=== PATIENT | female | born 1980 | race African-American/Black ===

== ENCOUNTER 2021-03-16 03:21 | Emergency (ER) | payer MEDICAID, SELFPAY ==
--- NOTE | ~2021-03-16 | CT_ITS ---
EXAMINATION: CT CHEST WITH CONTRAST CLINICAL INFORMATION: Chest pain and shortness of breath COMPARISON: None TECHNIQUE: Multidetector volumetric CT imaging of the chest was obtained after the administration of 65 mL of Omnipaque 350 intravenous contrast without immediate adverse reactions. Axial MIP volume rendering provided. Sagittal and coronal reformatted images were obtained. This CT examination was performed using dose optimization techniques as appropriate, variously including the following: *Automated exposure control *Adjustment of mA and/or kV according to patient size (this includes techniques or standardized protocols for targeted exams where dose is matched to indication/reason for exam; i.e. extremities or head) *Use of iterative reconstruction technique DLP: 312 mGy-cm FINDINGS: LUNGS: The lungs are clear with no evidence of inflammation or nodules. MEDIASTINUM: Normal heart size. No pericardial effusion. No mediastinal or hilar adenopathy. PLEURA: There is no pleural effusion. No pleural mass or thickening. AXILLA: No lymphadenopathy. UPPER ABDOMEN: Unremarkable OSSEOUS STRUCTURES: Unremarkable. CT/CT chest w con IMPRESSION: No etiology for the patient's symptomatology is identified.
--- NOTE | ~2021-03-16 | XR_ITS ---
EXAMINATION: XR CHEST CLINICAL INFORMATION: Chest pain and shortness of breath COMPARISON: None TECHNIQUE: Frontal view of the chest was obtained. FINDINGS: No significant abnormality is noted involving the heart, lungs, mediastinum, bony thorax or soft tissues. XR/XR chest 1V IMPRESSION: Unremarkable examination.
--- NOTE | 2021-03-16 03:29 | ECG_ITS ---
Test Reason : CHEST PAIN Blood Pressure : / mmHG Vent. Rate : 113 BPM Atrial Rate : 113 BPM P-R Int : 104 ms QRS Dur : 082 ms QT Int : 332 ms P-R-T Axes : 037 044 037 degrees QTc Int : 455 ms Sinus tachycardia with short MS Nonspecific ST and T wave abnormality Abnormal ECG No previous ECGs available Referred By: Jennifer Modi Electronically Signed By:SIMA HIGH
[2021-03-16 03:35] VITALS: BP 137/92; PULSE 143; RESP 22; TEMP 37; O2SAT 100; BMI 27.3
[2021-03-16 03:53] VITALS: BP 136/90; PULSE 108; RESP 20; O2SAT 100
[2021-03-16 03:57] VITALS: BP 136/77
[2021-03-16 03:58] VITALS: BP 138/90
[2021-03-16 03:58] LABS: Hematocrit 28.9 % (37-47); Hemoglobin 8.8 g/dl (12.0-16.0); Mean Corpuscular HGB Conc 30.4 g/dl (31.0-35.0); Mean Corpuscular Hemoglobin 22.1 pg (27.0-33.0); Mean Corpuscular Volume 72.4 fL (80-98); Mean Platelet Volume 9.7 fL (9.4-12.3); Platelet Count 341 X10*3/uL (160-400); Red Blood Count 3.99 X10*6/uL (4.20-5.50); Red Cell Distribution Width 18.8 % (11.0-16.0)
[2021-03-16 04:00] LABS: WBC ABN SCTR FOR CBC 1
--- NOTE | 2021-03-16 04:03 | ED_ITS ---
HPI - Chest Pain General Chief Complaint: Chest Pain Stated Complaint: CP W/ASA AND NITRO Time Seen by Provider: 03/16/21 03:29 Source: patient Mode of arrival: EMS History of Present Illness HPI narrative: 40-year-old female with sudden onset of 7/10 chest pain that is sharp in nature associated with palpitations and describes the pain as midsternal and radiating through to her back. Pain significantly increases when she lies flat and is not associated with deep respiration. Patient took 324 mg of aspirin on her own and EMS administered 0.4 nitro without any pain relief. Patient denies any associated fever, chills, GI or symptoms and states that she has no significant past medical history. Related Data Allergies Allergy/AdvReac Type Severity Reaction Status Date / Time No Known Allergies Allergy Unverified 03/16/21 03:29 Review of Systems Review of Systems: Pertinent positives and negatives as stated in HPI 10 point review of systems is otherwise negative. [facility] Past Medical History Source: nursing notes reviewed Social History Social History Advance Directives: No Physical Exam Vital Signs: Vital Signs: Last Vital Signs Temp 98.6 F 03/16/21 03:35 Pulse 88 03/16/21 04:20 Resp 14 03/16/21 04:20 BP 124/79 03/16/21 04:20 Pulse Ox 100 03/16/21 04:20 Body Mass Index 27.3 VITAL SIGNS: Reviewed. GENERAL: Well developed, well nourished, anxious. HEAD: Normocephalic/atraumatic EYES: PERRLA, EOMI EARS: Ext canals without abnormality, TMs non-bulging and non-erythematous NOSE: Nares patent bilateral OROPHARYNX: no oral lesions noted, posterior pharynx clear and non-erythematous without noted tonsillar enlargement/erythema/exudates NECK: Supple, no adenopathy LUNGS: Normal breath sounds. No adventitious sounds or accessory muscle use. SpO2<100> CARDIOVASCULAR: Regular rate and rhythm without noted murmurs ABDOMEN: Soft, non-tender, non-distended with bowel sounds. MUSCULOSKELETAL: No tenderness, deformities, or effusions noted on gross inspection. EXTREMITIES: No cyanosis, clubbing or edema. SKIN: Inspection of the skin reveals no rashes NEUROLOGIC: Alert and oriented x 4. Course Course Course Narrative: This is a 40-year-old female with history and clinical presentation suggestive of possible pericarditis, low clinical suspicion for dissection, and on review of EKG no evidence to suggest acute STEMI. In addition, history not consistent with PE. Patient received IV Toradol with complete resolution of her pain. On review of all investigations there are no acute findings to better explain patient's presentation. On re-evaluation after providing her with Toradol patient has had complete resolution of her pain. High sensitivity troponin is undetectable and there are no acute EKG findings. MDM - Chest Pain Lab Data Result diagrams: 03/16/21 03:47 03/16/21 03:48 Labs: Lab Results 03/16/21 03/16/21 03/16/21 Range/Units 03:47 03:47 03:47 WBC 6.4 (4.8-10.8) X10*3/uL RBC 3.99 L (4.20-5.50) X10*6/uL Hgb 8.8 L (12.0-16.0) g/dl Hct 28.9 L (37-47) % MCV 72.4 L (80-98) fL MCH 22.1 L (27.0-33.0) pg MCHC 30.4 L (31.0-35.0) g/dl RDW 18.8 H (11.0-16.0) % Plt Count 341 (160-400) X10*3/uL MPV 9.7 (9.4-12.3) fL Immature Gran % (Auto) Cancelled Neut % (Auto) Cancelled Lymph % (Auto) Cancelled Garfield % (Auto) Cancelled Eos % (Auto) Cancelled Baso % (Auto) Cancelled Lymph # (Auto) Cancelled Garfield # (Auto) Cancelled Eos # (Auto) Cancelled Baso # (Auto) Cancelled Abs Immat Gran (auto) Cancelled Absolute Neuts (auto) Cancelled Absolute Nucleated RBC 0.000 (0.0-0.012) X10*3/uL Nucleated RBC % (auto) 0.0 (0.0-0.2) /100WBC Neutrophils % (Manual) 42 L (45-73) % Band Neutrophils % 0 L (3-5) % Lymphocytes % (Manual) 49 H (20-40) % Monocytes % (Manual) 4 (2-11) % Eosinophils % (Manual) 5 H (0-4) % Abs Neuts (Manual) 2.7 (2.2-7.9) X10*3/uL Lymphocytes # (Manual) 3.1 (0.6-4.8) X10*3/uL Monocytes # (Manual) 0.3 (0.0-1.2) X10*3/uL Eosinophils # (Manual) 0.3 (0.0-0.8) X10*3/UL Platelet Estimate NORMAL (NORMAL) Large Platelets PRESENT Plt Morphology Comment NORMAL RBC Morphology NOTED Polychromasia 1+ (0-2) /OIF Microcytosis 1+ (5-14) /OIF Target Cells 1+ (5-14) /OIF Tear Drop Cells 1+ (0-2) /OIF Ovalocytes 1+ (5-14) /OIF Acanthocytes (Spur) 1+ (0-2) /OIF PT 12.1 (9.9-13.0) SEC INR 1.1 (0.9-1.1) Sodium (135-145) mmol/L Potassium (3.3-5.1) mmol/L Chloride (96-108) mmol/L Carbon Dioxide (22-29) mmol/L Anion Gap (12-20) BUN (9-16) mg/dL Creatinine (0.5-1.4) mg/dL Estim Creat Clear Calc Estimated GFR Random Glucose (60-115) mg/dL Calcium (8.4-10.2) mg/dL Total Bilirubin (0.0-1.0) mg/dL AST (5-31) U/L ALT (0-31) U/L Alkaline Phosphatase (39-117) U/L Troponin I High Sens < 3.5 (<3.5-17.0) ng/L C-Reactive Protein (< or = 0.50) mg/dL Total Protein (6.5-8.0) g/dL Albumin (3.5-5.0) g/dL Lipase (8-78) U/L Beta HCG, Quant mIU/mL COVID-19 (ML) (Negative) COVID-19 Clin Com 03/16/21 03/16/21 Range/Units 03:47 03:48 WBC (4.8-10.8) X10*3/uL RBC (4.20-5.50) X10*6/uL Hgb (12.0-16.0) g/dl Hct (37-47) % MCV (80-98) fL MCH (27.0-33.0) pg MCHC (31.0-35.0) g/dl RDW (11.0-16.0) % Plt Count (160-400) X10*3/uL MPV (9.4-12.3) fL Immature Gran % (Auto) Neut % (Auto) Lymph % (Auto) Garfield % (Auto) Eos % (Auto) Baso % (Auto) Lymph # (Auto) Garfield # (Auto) Eos # (Auto) Baso # (Auto) Abs Immat Gran (auto) Absolute Neuts (auto) Absolute Nucleated RBC (0.0-0.012) X10*3/uL Nucleated RBC % (auto) (0.0-0.2) /100WBC Neutrophils % (Manual) (45-73) % Band Neutrophils % (3-5) % Lymphocytes % (Manual) (20-40) % Monocytes % (Manual) (2-11) % Eosinophils % (Manual) (0-4) % Abs Neuts (Manual) (2.2-7.9) X10*3/uL Lymphocytes # (Manual) (0.6-4.8) X10*3/uL Monocytes # (Manual) (0.0-1.2) X10*3/uL Eosinophils # (Manual) (0.0-0.8) X10*3/UL Platelet Estimate (NORMAL) Large Platelets Plt Morphology Comment RBC Morphology Polychromasia /OIF Microcytosis /OIF Target Cells /OIF Tear Drop Cells /OIF Ovalocytes /OIF Acanthocytes (Spur) /OIF PT (9.9-13.0) SEC INR (0.9-1.1) Sodium 138 (135-145) mmol/L Potassium 3.4 (3.3-5.1) mmol/L Chloride 106 (96-108) mmol/L Carbon Dioxide 22 (22-29) mmol/L Anion Gap 13 (12-20) BUN 10 (9-16) mg/dL Creatinine 1.08 (0.5-1.4) mg/dL Estim Creat Clear Calc 68.5 Estimated GFR 56 Random Glucose 183 H (60-115) mg/dL Calcium 9.8 (8.4-10.2) mg/dL Total Bilirubin 0.4 (0.0-1.0) mg/dL AST 13 (5-31) U/L ALT 10 (0-31) U/L Alkaline Phosphatase 63 (39-117) U/L Troponin I High Sens (<3.5-17.0) ng/L C-Reactive Protein 0.05 (< or = 0.50) mg/dL Total Protein 7.4 (6.5-8.0) g/dL Albumin 4.5 (3.5-5.0) g/dL Lipase 42 (8-78) U/L Beta HCG, Quant < 2 mIU/mL COVID-19 (ML) Negative (Negative) COVID-19 Clin Com See Note ECG Data ECG #1: Attestation: I personally reviewed and interpreted this ECG as follows: Prior ECG tracings: not available for review Interpretation: Normal sinus rhythm, HR-86, no STEMI, OH/QRS/QTC are within normal limits. Discharge Plan Discharge Clinical Impression: Atypical chest pain Patient Disposition: Home, Self-Care Instructions: Chest Pain (ED) Additional Instructions: Follow-up with your primary care provider on Wednesday morning to discuss these symptoms that you have been having. Return to the ER for acute worsening of your symptoms. Referrals: Physician,Nonstaff [Primary Care Provider] - 2 days
[2021-03-16 04:04] LABS: INTERNATIONAL NORM RATIO 1.1 (0.9-1.1); Prothrombin Time 12.1 SEC (9.9-13.0)
[2021-03-16 04:10] LABS: COVID-19 Test Negative (Negative); IDNOW Serial# 9DD0AD1C
[2021-03-16 04:11] LABS: Alanine Aminotransferase 10 U/L (0-31); Albumin Level 4.5 g/dL (3.5-5.0); Alkaline Phosphatase 63 U/L (39-117); Anion Gap 13 (12-20); Aspartate Amino Transferase 13 U/L (5-31); Bilirubin Total 0.4 mg/dL (0.0-1.0); Blood Urea Nitrogen 10 mg/dL (9-16); C Reactive Protein 0.05 mg/dL (< or = 0.50); Calcium 9.8 mg/dL (8.4-10.2); Carbon Dioxide 22 mmol/L (22-29); Chloride 106 mmol/L (96-108); Creatinine Clr Calc Pharmacy 68.5; Estimated Glomerular Filt Rate 56; Glucose Random 183 mg/dL (60-115); Potassium 3.4 mmol/L (3.3-5.1); Sodium 138 mmol/L (135-145); Total Protein 7.4 g/dL (6.5-8.0)
[2021-03-16 04:14] LABS: Troponin-I High Sensitivity < 3.5 ng/L (<3.5-17.0)
[2021-03-16 04:18] LABS: Lipase 42 U/L (8-78)
[2021-03-16 04:20] VITALS: BP 124/79; PULSE 88; RESP 14; O2SAT 100
[2021-03-16] MEDS: Ketorolac Tromethamine 15 MG/ML VIAL IVPUSH (04:21)
[2021-03-16 04:33] LABS: Acanthocytes 1+ (0-2) /OIF; Band Neutrophils Percent 0 % (3-5); Eosinophils Percent Manual 5 % (0-4); Large Platelet PRESENT; Lymphocytes Percent Manual 49 % (20-40); Microcytosis 1+ (5-14) /OIF; Monocytes Percent Manual 4 % (2-11); Neutrophils Percent Manual 42 % (45-73); Ovalocytes 1+ (5-14) /OIF; Platelet Estimate NORMAL (NORMAL); Platelet Morphology Comment NORMAL; Polychromasia 1+ (0-2) /OIF; RBC Morphology NOTED; Target Cells 1+ (5-14) /OIF; Tear Drop Cells 1+ (0-2) /OIF
[2021-03-16 04:36] LABS: Eosinophils Absolute Manual 0.3 X10*3/UL (0.0-0.8); Lymphocytes Absolute Manual 3.1 X10*3/uL (0.6-4.8); Monocytes Absolute Manual 0.3 X10*3/uL (0.0-1.2); Neutrophils Absolute Manual 2.7 X10*3/uL (2.2-7.9); White Blood Count 6.4 X10*3/uL (4.8-10.8)
--- NOTE | 2021-03-16 04:51 | PC.NURSE ---
PT REPORTS IMPROVEMENT IN CHEST DISCOMFORT. PT'S HR IMPROVED TO 88 BPM. PT LESS ANXIOUS AND ABLE TO POSITION IN BED SEMI FOWLERS.
[2021-03-16 05:11] LABS: HCG Quantitative < 2 mIU/mL
[2021-03-16] MEDS: iohexoL 350 MG/ML 100 ML INFUS..BTL 65 ML IV (05:23)
[2021-03-16 07:04] VITALS: PULSE 71; RESP 16; O2SAT 99
--- NOTE | 2021-03-16 07:04 | PC.NURSE ---
pt fell asleep following toradol. pt now reports pain almost gone, now 2/.
--- NOTE | 2021-03-17 07:56 | ECG_ITS ---
Test Reason : CP Blood Pressure : / mmHG Vent. Rate : 086 BPM Atrial Rate : 086 BPM P-R Int : 158 ms QRS Dur : 074 ms QT Int : 382 ms P-R-T Axes : 063 046 044 degrees QTc Int : 457 ms Normal sinus rhythm with sinus arrhythmia Nonspecific ST abnormality Abnormal ECG When compared with ECG of 16-MAR-2021 04:29, No significant change was found Referred By: Generic ED Physician Electronically Signed By:SIMA HIGH
== END 2021-03-16 07:05 | disposition home or self-care (01) ==
PROVIDERS: Emergency Provider Student in an Organized Health Care Education/Training Program
DX: R07.89 Other chest pain (principal); Z20.822 Contact with and (suspected) exposure to COVID-19
CPT/HCPCS: 36415; 71045; 71260; 80053; 83690; 84484; 84702; 85007; 85025; 85027; 85610; 86140; 87635; 93005; 96374; 99284; J1885; Q9967

== ENCOUNTER 2021-03-16 07:42 | Emergency (ER) | payer MEDICAID, SELFPAY ==
--- NOTE | 2021-03-16 07:57 | ECG_ITS ---
Test Reason : REPEAT Blood Pressure : / mmHG Vent. Rate : 086 BPM Atrial Rate : 086 BPM P-R Int : 168 ms QRS Dur : 082 ms QT Int : 386 ms P-R-T Axes : 068 036 036 degrees QTc Int : 461 ms Normal sinus rhythm Normal ECG When compared with ECG of 16-MAR-2021 03:39, Nonspecific ST and T wave abnormality is no longer Present Heart rate has decreased Referred By: Emily Guzman Electronically Signed By:SIMA HIGH
[2021-03-16 08:00] VITALS: BP 129/77; PULSE 77; RESP 18; TEMP 36.8; O2SAT 97; BMI 27.3
[2021-03-16 08:20] VITALS: BP 129/77; PULSE 70; RESP 15; TEMP 36.8; O2SAT 100
--- NOTE | 2021-03-16 08:22 | PC.NURSE ---
Pt was discharged from ed 0700 this morning, she states that while waiting for her uber in the waiting room she started having the same symptoms - she describes as chest tightening with inhalation. She denies sob/dizziness, no other symptoms reported. Pt currently resting quietly, no apparent distress. Will continue to monitor.
[2021-03-16 08:53] LABS: D Dimer < 200 NG/ML
[2021-03-16] MEDS: Lidocaine 4 % Patch ADH..PATCH 1 PATCH TRANSDERMA (08:59)
[2021-03-16] MEDS: diazePAM 5 MG TABLET PO (09:00)
[2021-03-16] MEDS: NaPROXEN 500 MG TABLET PO (09:00)
[2021-03-16 09:03] LABS: Troponin-I High Sensitivity < 3.5 ng/L (<3.5-17.0)
--- NOTE | 2021-03-16 10:09 | ED_ITS ---
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 She reports the pain has been persistent and progressively worsening. She reports the pain is relieved with sitting up. The pain is worse with laying down flat. She was seen here around 03:00 for similar complaint and had a of complete workup including troponin which was negative, chest x-ray which was negative, CT scan of chest with contrast which was negative. Then she was discharged although she reports that she was just sleeping and they woke her up and told her that everything was normal and sent her on her way. She reports that she was waiting for her over in the waiting room and she felt her chest pain was still there therefore she came here for further evaluation and treatment. She reports earlier her pain radiated to her midback although she does not have the pain radiating to her mid back at this time. Although she does admit that while she was in the waiting room she felt like her heart was racing. Patient does report that her mother when she was 6 years old a day after she gave to her younger sister from some type of cardiac related complication. She also reports that her mother sister at a young age as well although she is unsure of what actually her mother sister of. She denies any fevers, chills, dizziness, headaches, change in vision, nausea/vomiting, back pain, dyspnea on exertion, orthopnea, abdominal pain, dysuria, hematuria, diarrhea or con stipation, black or bloody stools, recent travel or sick contacts, long plane/train/car ride or recent immobilization or surgeries, history of DVT or PE, hypercoagulation disorder, any estrogen usage or any other symptoms complaints or concerns at this time. She denies any drug or alcohol usage including cocaine. MD complaint: chest pain Onset (ago): day(s) (Since yesterday) Timing of current episode: constant, increasing and still present Prior episodes: No Onset: other (While at work passing medications that she is a travel nurse) Pain location: left chest Pain radiation: left arm Severity: moderate Quality: tightness, aching, heaviness, sharp and shooting Relieving factors: sitting upright Exacerbating factors: other (Laying down flat) Associated symptoms: palpitations and other (Left arm tingling) Treatment prior to arrival: aspirin and nitroglycerin Risk Factors Coronary artery disease risk factors: none Thoracic aortic dissection risk factors: none Related Data On Oral Contraceptives: No Previous Rx's Medication Instructions Recorded diazepam 5 mg tablet (Valium) 5 mg PO TID PRN #14 tab 03/16/21 lidocaine HCl 4 % topical cream 1 appl TOPICAL BID PRN #120 g 03/16/21 (Aspercreme (lidocaine HCl)) naproxen 500 mg tablet 500 mg PO BID PRN #10 tab 03/16/21 Allergies Allergy/AdvReac Type Severity Reaction Status Date / Time No Known Allergies Allergy Unverified 03/16/21 03:29 Review of Systems Review of Systems: Constitutional : No Weight loss, No Fever, No Chills, No Night Sweats, No Fatigue, No Malaise ENT/Mouth : No Hearing loss, No Ear Pain, No Nasal Congestion, No Sinus Pain, No Hoarseness, No sore throat, No Rhinorrhea, No Swallowing Difficulty Eyes: No Eye Pain, No Swelling, No Redness, No Foreign Body, No Discharge, No Vision Changes Cardiovascular :Positive Chest Pain, Positive Palpitations, No SOB, no Dyspnea on Exertion, No Orthopnea, No Edema, No extremity swelling Respiratory : No Cough, No Sputum, No Wheezing, No Dyspnea Gastrointestinal : No Nausea, No Vomiting, No Diarrhea, No abdominal Pain, No Hematochezia, No Melena Genitourinary : No irregular bleeding, No Dysuria, No Urinary Frequency, No Hematuria, No Urinary Incontinence, No Urgency, No Flank Pain, No Urinary Flow Changes, NoHesitancy Musculoskeletal : No joint pain, No Myalgias, No Joint Swelling Skin : No Skin Lesions, No rash Neuro : Positive left arm tingling, No Weakness, No Numbness, No Loss of Consciousness, No Dizziness, No Headache Psych : No Anxiety/Panic, No Depression, No SI/HI/AH/VH Heme/Lymph: No Bruising, No Bleeding,No Lymphadenopathy Endocrine : No Polyuria, No Polydipsia, No Temperature Intolerance Yes all other systems are reviewed and are negative REPLACED BY [facility] Past Medical History Attestation statement: The following information was validated with the patient. Social History Social History Advance Directives: No Advance Directives Information Provided: No Physical Exam Vital Signs: Vital Signs: Last Vital Signs Temp 98.3 F 03/16/21 08:20 Pulse 70 03/16/21 08:20 Resp 15 03/16/21 08:20 BP 129/77 03/16/21 08:20 Pulse Ox 100 03/16/21 08:20 Body Mass Index 27.3 vital signs have been reviewed as normal and appeared to be correct. Blood pressure normal. Heart rate normal. Respiration rate normal. Temperature normal. Oxygen saturation normal. Appearance: Alert. Oriented X3. No acute distress. Head: Normal external exam. Normocephalic. Atraumatic. Eyes: PERRLA. EOMI. Conjunctiva and sclera normal. Eyelids normal. ENT: Pharynx normal. Uvula midline. Moist mucous membranes. Neck: Normal inspection. Neck supple. FROM. No adenopathy. Thyroid Normal. No meningeal signs. No neck mass noted. CVS: Normal heart rate and rhythm. Heart sound normal. Pulses normal throughout. No murmurs/rales/gallops. Respiratory: No respiratory distress. Painless inspiration. Breath sounds normal. No wheezes/rales/rhonchi noted. Chest nontender. No accessory muscle usage noted or decreased air movement noted. Abdomen: Soft and nontender. Bowel sounds normal in all 4 quadrants. No distention noted. No organomegaly noted. No visible injury noted. Back: Full range of motion noted. No rashes/lesion/induration/fluctuance or signs of infection noted. Skin: Skin warm and dry. Normal skin color. Normal skin turgor. No rashes/lesions/lacerations noted. Extremities: No lower extremity edema. No calf tenderness is noted. Extremities exhibit normal range of motion. Extremities nontender. Neuro: Oriented X 3. No motor deficit. No sensory deficit. Reflexes normal. Normal steady gait. No focal neuro deficits noted. Vascular: + radial pulses/+ 2 distal pedal pulses/+2 dorsalis pedis b/l. Normal cap refill. No cyanosis noted to upper extremity nails and lower extremity toes nails. Course Course Course Narrative: 40-year-old female presenting to the ED for a 2nd time after she was evaluated overnight for same complaint with a complaint of left-sided chest pain with associated palpitations radiating to her left arm with associated tingling that started yesterday and progressively worsening. She has no risk factors, although her mother of some type of cardiac complication when she was 6 after her mother gave to her younger sister. Her mother sister which is the patient is on also at a young age although she is unsure of what. Otherwise patient denies any drug uses such as chest cocaine. Perc negative. She had a full workup with 1-troponin. She was noted to be anemic. She had a negative . Negative COVID. She had a negative chest x-ray. Negative CT scan with contrast. An EKG was also within normal limits. Therefore at this time she had a repeat troponin which was negative. We added a D-dimer which was negative. A repeat EKG which was normal sinus rhythm with a sinus arrhythmia with ventricular rate of [address] abnormalities no acute ischemic changes were noted. Similar when compared to prior EKG. Therefore patient was given Valium and naproxen and she reports moderate symptomatic relief she is currently resting in her bed. I explained to her that this could be muscular skeletal although due to her family history I w ill refer her to follow up her primary care provider and Cardiology and to return if any new or worsening symptoms. Patient understands agrees with this plan. MDM - Chest Pain Medical Records Data Attestation: I reviewed the patient's medical records. Lab Data Attestation: I reviewed the patient's lab results. Labs: Lab Results 03/16/21 03/16/21 Range/Units 08:27 08:27 D-Dimer < 200 NG/ML Troponin I High Sens < 3.5 (<3.5-17.0) ng/L ECG Data ECG #1: Attestation: I personally reviewed and interpreted this ECG as follows: ECG interpretation date: 03/16/21 ECG interpretation time: 07:56 Interpretation: A repeat EKG which was normal sinus rhythm with a sinus arrhythmia with ventricular rate of [address] abnormalities no acute ischemic changes were noted. Similar when compared to prior EKG. Discharge Plan Discharge Clinical Impression: Atypical chest pain Patient Disposition: Home, Self-Care Instructions: Chest Pain (ED), Noncardiac Chest Pain (ED) Prescriptions: New naproxen 500 mg tablet 500 mg PO BID PRN (Reason: pain) Qty: 10 RF: 0 diazepam [Valium] 5 mg tablet 5 mg PO TID PRN (Reason: muscle spasm) Qty: 14 RF: 0 lidocaine HCl [Aspercreme (lidocaine HCl)] 4 % cream 1 appl topical BID PRN (Reason: pain) Qty: 120 RF: 0 Referrals: Torres Moreno MD [Physician] - 2 days Physician,None [Primary Care Provider] - 2 days (your pcp) Stand Alone Forms: Work/School Release Print Language: Honduran
--- NOTE | 2021-03-16 11:18 | PC.NURSE ---
pt reports she no longer is having chest pain. she denies sob/dizziness/headache. No symptoms reported at this time. pt medically cleared for discharge
== END 2021-03-16 11:27 | disposition home or self-care (01) ==
PROVIDERS: Emergency Provider Emergency Medicine
DX: R07.89 Other chest pain (principal); M79.602 Pain in left arm; Z79.899 Other long term (current) drug therapy
CPT/HCPCS: 36415; 84484; 85379; 93005; 99284